=== PATIENT | male | born 1980 | race Caucasian/White ===

== ENCOUNTER 2017-05-29 15:55 | Emergency (ER) | payer BC ==
[2017-05-29 16:28] VITALS: BP 170/99; PULSE 86; RESP 16; TEMP 97.2; O2SAT 99
--- NOTE | 2017-05-29 18:49 | ED PDOC ---
HPI: Abdomen Time Seen by Provider: 05/29/17 17:53 Chief Complaint (Nursing): GI Problem Chief Complaint (Provider): Rectal bleeding History Per: Patient Additional Complaint(s): pt into ER c/o blood in his stool yesterday. denies any abd. pain, denies any N/ V or constipation. states he had a BM today but denies any blood in his stool today. Past Medical History Reviewed: Nursing Documentation, Vital Signs Vital Signs: Last Vital Signs Temp 97.2 F L 05/29/17 16:28 Pulse 86 05/29/17 16:28 Resp 16 05/29/17 16:28 BP 170/99 H 05/29/17 16:28 Pulse Ox 99 05/29/17 18:49 - Medical History PMH: No Chronic Diseases - Family History Family History: States: No Known Family Hx - Living Arrangements Living Arrangements: With Family - Social History Current smoker - smoking cessation education provided: No Alcohol: Social Drugs: Denies - Immunization History Hx Tetanus Toxoid Vaccination: No Hx Influenza Vaccination: No Hx Pneumococcal Vaccination: No - Home Medications Home Medications: Ambulatory Orders Medication Instructions Recorded Tab 07/19/13 Tramadol Hydrochloride [Tramadol 50 mg PO Q6H PRN #15 tab 03/27/15 HCl] diaZEpam [Valium] 5 mg PO Q8 PRN #15 tab 03/27/15 Docusate [Colace] 100 mg PO DAILY #7 cap 05/29/17 - Allergies Allergies/Adverse Reactions: Allergies Allergy/AdvReac Type Severity Reaction Status Date / Time No Known Allergies Allergy Verified 05/29/17 16:26 Review of Systems ROS Statement: Except As Marked, All Systems Reviewed And Found Negative Gastrointestinal: Positive for: Hematochezia Physical Exam - Reviewed Nursing Documentation Reviewed: Yes Vital Signs Reviewed: Yes - Physical Exam Appears: Positive for: Well, Non-toxic, No Acute Distress Head Exam: Positive for: ATRAUMATIC, NORMAL INSPECTION, NORMOCEPHALIC Skin: Positive for: Normal Color, Warm, DRY Eye Exam: Positive for: EOMI, Normal appearance, PERRL ENT: Positive for: Normal ENT Inspection Neck: Positive for: Normal, Painless ROM Cardiovascular/Chest: Positive for: Regular Rate, Rhythm Respiratory: Positive for: CNT, Normal Breath Sounds Gastrointestinal/Abdominal: Positive for: Normal Exam, Bowel Sounds, Soft Back: Positive for: Normal Inspection Rectal: Positive for: Normal Exam, Mass, Tenderness. Negative for: Black Stool , Blood Streaked Stool, Hemorrhoids Extremity: Positive for: Normal ROM Neurologic/Psych: Positive for: Alert, Oriented - Laboratory Results Result Diagrams: 05/29/17 19:13 05/29/17 19:16 - ECG O2 Sat by Pulse Oximetry: 99 Medical Decision Making Medical Decision Making: Pt educated on causes of rectal bleeding, as well as benign physical exam findings. Advised to follow up with GI referral Disposition - Clinical Impression Clinical Impression: Rectal bleeding - Patient ED Disposition Is Patient to be Admitted: No - Disposition Referrals: Mike Cheng MD, PhD [Staff Provider] - Disposition: Routine/Home Disposition Time: 16:00 Condition: STABLE Prescriptions: Docusate [Colace] 100 mg PO DAILY #7 cap Instructions: Rectal Bleeding (ED) Forms: [facility] (Arabic)
[2017-05-29 19:30] LABS: BASO # 0.1 K/uL (0.0-0.2); BASO % 0.7 % (0.0-2.0); EOS # 0.2 K/uL (0.0-0.7); EOS % 1.6 % (0.0-4.0); HEMOGLOBIN 15.1 g/dL (12.0-18.0); LYMPH # 2.6 K/uL (1.0-4.3); MEAN CELL VOLUME 83.7 fl (80.0-94.0); MEAN CORPUSCULAR HEMOGLOBIN 28.1 pg (27.0-31.0); MEAN CORPUSCULAR HGB CONC 33.6 g/dL (33.0-37.0); MEAN PLATELET VOLUME 8.8 fl (7.2-11.7); MONO # 0.6 K/uL (0.0-0.8); MONO % 5.4 % (0.0-10.0); NEUT # 7.3 K/uL (1.8-7.0); NEUT % 68.3 % (50.0-75.0); NRBC % 0.2 % (0.0-0.0); RBC 5.39 Mil/uL (4.40-5.90); RED CELL DISTRIBUTION WIDTH 13.2 % (11.5-14.5); WHITE BLOOD COUNT 10.8 K/uL (4.8-10.8)
[2017-05-29 19:47] LABS: ALB/GLOB RATIO 1.1 (1.0-2.1); ALBUMIN 4.1 g/dL (3.5-5.0); ALT/SGPT 91 U/L (21-72); AST/SGOT 60 U/L (17-59); BLOOD UREA NITROGEN 10 mg/dl (9-20); CALCIUM 9.3 mg/dL (8.4-10.2); GFR AFRICAN-AMERICAN > 60; GFR NON-AFRICAN AMERICAN > 60
[2017-05-29 19:56] LABS: PARTIAL THROMBOPLASTIN TIME 33.6 Seconds (25.6-37.1); PROTHROMBIN TIME 11.6 Seconds (9.8-13.1)
== END 2017-05-29 20:09 | disposition home or self-care (01) ==
LOC: H.ER 15:55
DX: K62.5 Hemorrhage of anus and rectum (principal)
CPT/HCPCS: 80053; 85025; 85610; 85730; 99284; G0328

== ENCOUNTER 2017-06-17 13:37 | Emergency (ER) | payer BC ==
[2017-06-17 13:51] VITALS: TEMP 98
--- NOTE | 2017-06-17 14:45 | ED PDOC ---
HPI: SOB/CHF/COPD Time Seen by Provider: 06/17/17 14:00 Chief Complaint (Nursing): Shortness Of Breath Chief Complaint (Provider): Shortness Of Breath History Per: Patient History/Exam Limitations: no limitations Onset/Duration Of Symptoms: Days (x2) Current Symptoms Are (Timing): Still Present Additional Complaint(s): 36 year old male with no significant past medical history, who presents to the ED complaining of shortness of breath x2 days. Patient states his mouth and throat feel dry. Also states he gets a headache and feels anxiety when he is short of breath. Denies chest pain, fever, chills, vomiting, and diarrhea. Patient reports he was seen in the ED 2.5 weeks ago due to blood in his stool and was referred to a specialist, which he states he followed up with. PMD: None provided Past Medical History Reviewed: Historical Data, Nursing Documentation, Vital Signs Vital Signs: Last Vital Signs Temp 98 F 06/17/17 13:50 Pulse 88 06/17/17 17:58 Resp 18 06/17/17 17:58 BP 150/96 H 06/17/17 17:58 Pulse Ox 98 06/17/17 17:58 - Medical History PMH: No Chronic Diseases - Surgical History Surgical History: No Surg Hx - Family History Family History: States: Unknown Family Hx - Social History Current smoker - smoking cessation education provided: No Alcohol: None Drugs: Denies - Immunization History Hx Tetanus Toxoid Vaccination: No Hx Influenza Vaccination: No Hx Pneumococcal Vaccination: No - Home Medications Home Medications: Ambulatory Orders Medication Instructions Recorded Tab 07/19/13 Tramadol Hydrochloride [Tramadol 50 mg PO Q6H PRN #15 tab 03/27/15 HCl] diaZEpam [Valium] 5 mg PO Q8 PRN #15 tab 03/27/15 Docusate [Colace] 100 mg PO DAILY #7 cap 05/29/17 - Allergies Allergies/Adverse Reactions: Allergies Allergy/AdvReac Type Severity Reaction Status Date / Time No Known Allergies Allergy Verified 06/17/17 13:50 Review of Systems ROS Statement: Except As Marked, All Systems Reviewed And Found Negative Constitutional: Negative for: Fever, Chills ENT: Positive for: Other (dry throat and mouth) Cardiovascular: Negative for: Chest Pain Respiratory: Positive for: Shortness of Breath Gastrointestinal: Negative for: Vomiting, Diarrhea Psych: Positive for: Anxiety Physical Exam - Reviewed Nursing Documentation Reviewed: Yes Vital Signs Reviewed: Yes - Physical Exam Appears: Positive for: Non-toxic, No Acute Distress Head Exam: Positive for: ATRAUMATIC, NORMAL INSPECTION, NORMOCEPHALIC Skin: Positive for: Normal Color, Warm, Dry. Negative for: Rash Eye Exam: Positive for: EOMI, Normal appearance, PERRL ENT: Positive for: Normal ENT Inspection Neck: Positive for: Normal, Painless ROM, Supple Cardiovascular/Chest: Positive for: Regular Rate, Rhythm. Negative for: Murmur Respiratory: Positive for: Normal Breath Sounds. Negative for: Respiratory Distress Gastrointestinal/Abdominal: Positive for: Normal Exam, Bowel Sounds, Soft. Negative for: Tenderness Back: Positive for: Normal Inspection. Negative for: L CVA Tenderness, R CVA Tenderness, Vertebral Tenderness Extremity: Positive for: Normal ROM. Negative for: Pedal Edema, Deformity Neurologic/Psych: Positive for: Alert, Oriented (x3). Negative for: Motor/ Sensory Deficits - Laboratory Results Result Diagrams: 06/17/17 15:13 06/17/17 15:13 - ECG O2 Sat by Pulse Oximetry: 98 (RA) Pulse Ox Interpretation: Normal Medical Decision Making Medical Decision Making: Time: 14:50 Initial Impression: chest/abdomina pain R/o pneumonia, r/o gastritis Initial Plan: --CMP --Troponin I --CBC w/ differential --Chest X-Ray 2 views --Pepcid 20 mg IVP --Reevaluation Time: 15:28 Chest X-Ray Findings: LUNGS: No active pulmonary disease. PLEURA: No significant pleural effusion identified. No pneumothorax apparent. CARDIOVASCULAR: Normal. OSSEOUS STRUCTURES: No significant abnormalities. VISUALIZED UPPER ABDOMEN: Normal. OTHER FINDINGS: None. IMPRESSION: No active disease. Time: 17:00 All labs reviewed and no clinically significant abnormalities were found. Upon reevaluation, patient is feeling better. States his throat still feels dry, but no current fever or cough. Patient will be discharged and advised to follow up with PMD in 1-2 days. pt has an appt tomorrow. There is agreement to discharge plan. Return if symptoms persist or worsen. Scribe Attestation: Documented by Aamir Francis, acting as a scribe for Nona Jones MD. Provider Scribe Attestation: All medical record entries made by the Scribe were at my direction and personally dictated by me. I have reviewed the chart and agree that the record accurately reflects my personal performance of the history, physical exam, medical decision making, and the department course for this patient. I have also personally directed, reviewed, and agree with the discharge instructions and disposition. Disposition - Clinical Impression Clinical Impression: Dry throat - Patient ED Disposition Is Patient to be Admitted: No Counseled Patient/Family Regarding: Studies Performed, Diagnosis, Need For Followup - Disposition [facility]errals[facility]Outside] [facility] [Outside] Morales Wheat MD [Staff Provider] - Disposition: Routine/Home Disposition Time: 16:25 Condition: IMPROVED Additional Instructions: follow up with GI specialist in 2 days clinic referral as well return to the ED With any worsening or concerning symptoms Instructions: Sore Throat in Adults Forms: [facility] (Citizen [place])
[2017-06-17 15:20] LABS: BASO # 0.1 K/uL (0.0-0.2); BASO % 0.7 % (0.0-2.0); EOS # 0.1 K/uL (0.0-0.7); EOS % 1.6 % (0.0-4.0); HEMOGLOBIN 13.8 g/dL (12.0-18.0); LYMPH % 23.5 % (20.0-40.0); MEAN CELL VOLUME 84.1 fl (80.0-94.0); MEAN CORPUSCULAR HEMOGLOBIN 28.2 pg (27.0-31.0); MEAN CORPUSCULAR HGB CONC 33.6 g/dL (33.0-37.0); MEAN PLATELET VOLUME 8.4 fl (7.2-11.7); MONO # 0.6 K/uL (0.0-0.8); MONO % 6.5 % (0.0-10.0); NEUT # 5.8 K/uL (1.8-7.0); NEUT % 67.7 % (50.0-75.0); RBC 4.9 Mil/uL (4.40-5.90); RED CELL DISTRIBUTION WIDTH 13.4 % (11.5-14.5); WHITE BLOOD COUNT 8.5 K/uL (4.8-10.8)
[2017-06-17 15:28] LABS: ALB/GLOB RATIO 1.1 (1.0-2.1); ALBUMIN 3.8 g/dL (3.5-5.0); ALT/SGPT 76 U/L (21-72); AST/SGOT 46 U/L (17-59); BLOOD UREA NITROGEN 14 mg/dl (9-20); CALCIUM 9.3 mg/dL (8.4-10.2); GFR AFRICAN-AMERICAN > 60; GFR NON-AFRICAN AMERICAN > 60
--- NOTE | 2017-06-17 15:30 | RAD ---
HISTORY: sob COMPARISON: No prior. TECHNIQUE: Chest PA and lateral FINDINGS: LUNGS: No active pulmonary disease. PLEURA: No significant pleural effusion identified. No pneumothorax apparent. CARDIOVASCULAR: Normal. OSSEOUS STRUCTURES: No significant abnormalities. VISUALIZED UPPER ABDOMEN: Normal. OTHER FINDINGS: None. IMPRESSION: No active disease.
[2017-06-17 17:32] VITALS: O2SAT 98
[2017-06-17 18:03] VITALS: BP 150/96; PULSE 88; RESP 18
== END 2017-06-17 18:09 | disposition home or self-care (01) ==
LOC: H.ER 13:37
DX: R68.89 Other general symptoms and signs (principal); J02.9 Acute pharyngitis, unspecified; F41.9 Anxiety disorder, unspecified